=== PATIENT | male | born 1965 | race Caucasian/White ===

== ENCOUNTER 2018-06-30 14:58 | Emergency (ER) | payer OTHER ==
--- NOTE | 2018-06-30 15:14 | ER Report ---
History and Physical Time Seen By MD: 15:13 Hx. of Stated Complaint: left shoulder pain HPI/ROS CHIEF COMPLAINT: Left shoulder injury HISTORY OF PRESENT ILLNESS: This is a 52-year-old male presents to emergency department for a left shoulder injury. Patient states that he was snowboarding approximately 2 and half hours prior to arrival, when he can edge and landed on his left elbow sustaining an injury to his left shoulder. Patient was able to snowboard down, went to the skin shows shack reevaluated and sent him to the ER for further evaluation. Patient drove himself to the emergency department. Patient arrives holding his left arm in place. CMS intact distal to the injury. There is a slight abnormality to the left acromioclavicular area. Denies hitting his head, no loss of consciousness. No chest pain or shortness breath. REVIEW OF SYSTEMS: Constitutional: No fever, no chills. Eyes: No discharge. ENT: No sore throat. Cardiovascular: No chest pain, no palpitations. Respiratory: No cough, no shortness of breath. Gastrointestinal: No abdominal pain, no vomiting. Genitourinary: No hematuria. Musculoskeletal: As above. Skin: No rashes. Neurological: No headache. Allergies: Coded Allergies: banana (Verified Allergy, Severe, ANAPHYLAXIS, 06/30/18) Home Meds No Active Prescriptions or Reported Meds Past Medical/Surgical History The patient has a past medical and surgical history of appendectomy. Reviewed Nurses Notes: Yes Constitutional Vital Sign - Last 24 Hours 06/30/18 06/30/18 06/30/18 06/30/18 15:08 15:10 15:28 15:30 Temp 97.9 Pulse 73 87 Resp 14 B/P (MAP) 149/104 (119) 149/104 139/81 (100) Pulse Ox 93 O2 Delivery Room Air 06/30/18 15:58 Pulse 88 Physical Exam General Appearance: The patient is alert, has no immediate need for airway protection and no signs of toxicity. Eyes: Pupils equal and round no pallor or injection. ENT, Mouth: Mucous membranes are moist. Respiratory: There are no retractions, lungs are clear to auscultation. Cardiovascular: Regular rate and rhythm. Gastrointestinal: Abdomen is soft and non tender, no masses, bowel sounds normal. Neurological: Alert and oriented 4. Moving all extremities. Following all commands. No focal neuro deficits. Skin: Warm and dry, no rashes. Musculoskeletal: Neck is supple non tender. Extremities left shoulder swelling and pain over the acromioclavicular area with pain, does appear to be a small deformity. No crepitus, CMS intact distal to the injury. DIFFERENTIAL DIAGNOSIS: After history and physical exam differential diagnosis was considered for dislocation, fracture, subluxation, acromioclavicular separation, scapular fracture Medical Decision Making EKG/Imaging Imaging Location: [facility] [place] Patient: Evan Bhatia : 1965 Visit/Account:[id number] Date of Sevice: 06/30/2018 Technique: SHOULDER MIN 2 VIEWS LEFT HISTORY: eval for AC or Dislocation Comparison studies: None FINDINGS: There is no acute fracture. Marginal osteophytosis is noted within the acromioclavicular joint. The alignment of the coracoclavicular, acromioclavicular as well as glenohumeral joints are preserved. Soft tissues are unremarkable. IMPRESSION: 1. No acute osseous process. 2. Degenerative findings at the left AC joint. Report Dictated By: Casa Gamez DO at 06/30/2018 3:44 PM Report E-Signed By: Casa Gamez DO at 06/30/2018 3:48 PM WSN:[facility] ED Course/Re-evaluation ED Course The patient was admitted to a room. A history and physical were obtained. Differential diagnoses were considered. An x-ray of the left shoulder was negative for any acute abnormalities, no crumby clavicular separation, no dislocation or fractures identified. I did review these results with the patient, patient was leave. Patient was given 800 mg by mouth ibuprofen. He was placed in a sling for comfort. Instructed to follow-up with [facility] early next week for reevaluation, return to ER for any other concerns. Patient expressed understanding was agreeable and discharged home. Decision to Disposition Date: Jun 30, 2018 Decision to Disposition Time: 16:20 Depart Departure Latest Vital Signs Vital Signs Date Time Temp Pulse Resp B/P (MAP) Pulse Ox O2 Delivery O2 Flow Rate FiO2 06/30/18 15:58 88 06/30/18 15:30 139/81 (100) 06/30/18 15:10 97.9 14 93 Room Air Impression: Primary Impression: Injury of left shoulder Additional Impression: Snowboarding accident Condition: Improved Disposition: HOME OR SELF-CARE Referrals: LUIS CARLOS DURON MD New Scripts No Active Prescriptions or Reported Meds Patient Instructions: Acromioclavicular Separation (ED), Shoulder Pain (ED) Additional Instructions: No concerning findings on the x-ray today. I do feel that she needs reevaluation by orthopedics next week, I am concerned that there may be an acromioclavicular injury. Wear the sling for comfort. Take ibuprofen or Tylenol as needed for pain. Drink plenty of water. Get plenty of rest. Return to the emergency department for any concerns or worsening symptoms. Problem Qualifiers Primary Impression: Injury of left shoulder Encounter type: initial encounter Qualified Codes: S49.92XA - Unspecified injury of left shoulder and upper arm, initial encounter Additional Impression: Snowboarding accident Encounter type: initial encounter Qualified Codes: V00.318A - Other snowboard accident, initial encounter ZO FOWLERP- Jun 30, 2018 15:13
[2018-06-30 15:30] VITALS: BP 139/81
--- NOTE | 2018-06-30 15:52 | RADIOLOGY IMAGING REPORT ---
FACILITY: [facility] - [place] PATIENT NAME: Evan Bhatia : 1965 MR: [id number] V: [id number] EXAM DATE: ORDERING PHYSICIAN: ZO FOWLER TECHNOLOGIST: Location: [facility] Patient: Evan Bhatia : 1965 Visit/Account:[id number] Date of Sevice: 06/30/2018 Technique: SHOULDER MIN 2 VIEWS LEFT HISTORY: eval for AC or Dislocation Comparison studies: None FINDINGS: There is no acute fracture. Marginal osteophytosis is noted within the acromioclavicular j oint. The alignment of the coracoclavicular, acromioclavicular as well as glenohumeral joints are pr eserved. Soft tissues are unremarkable. IMPRESSION: 1. No acute osseous process. 2. Degenerative findings at the left AC joint. Report Dictated By: Casa Gamez DO at 06/30/2018 3:44 PM Report E-Signed By: Casa Gamez DO at 06/30/2018 3:48 PM WSN:[email or web address]
[2018-06-30] MEDS ORDERED: IBUPROFEN 800 MG TAB PO ONE (16:25)
== END 2018-06-30 16:38 | disposition home or self-care (01) ==
LOC: ER 15:22
DX: S49.92XA Unspecified injury of left shoulder and upper arm, initial encounter (principal); V00.318A Other snowboard accident, initial encounter
CPT/HCPCS: 73030; 99283; A4565